=== PATIENT | female | born 1975 | race Caucasian/White ===

== ENCOUNTER 2016-10-12 03:46 | Emergency (ER) | payer OTHER ==
[2016-10-12] MEDS ORDERED: NS 2,000 ML IV ONE (03:52)
[2016-10-12] MEDS ORDERED: ONDANSETRON 4 MG/2 ML VIAL IVP ONE (03:52)
--- NOTE | 2016-10-12 03:57 | EDPHY ---
H & P HPI/ROS: HPI CHIEF COMPLAINT: Nausea, vomiting, diarrhea, syncope HISTORY OF PRESENT ILLNESS: This patient very pleasant 41-year-old female significant past medical history for [place] disease, she presents emergency room by EMS after she had 2 syncopal episodes. She has been sick with a diarrheal illness for the past 24 hours with persistent nausea vomiting and watery diarrhea no blood. No fever. She has also had some abdominal cramps. She states her daughter had the same thing and past the blood 2 her. She tells me she has been vomiting all night nonbloody nonbilious. Watery diarrhea no blood. Patient tells me she has had profuse watery diarrhea. She started vomiting this evening was lying down trying to get up and was unable to do so when she did she passed out she did try to get up again and passed out of as well she denies chest pain or shortness of breath. She does complain of lightheadedness. And abdominal cramping. She did receive Zofran by EMS and is feeling better prior to arrival. She declined pain medicine. Past Medical History: [place] Disease Past Surgical History: Appendectomy Social History: Denies daily use of drugs alcohol tobacco products Family History: Noncontributory ROS REVIEW OF SYSTEMS: A comprehensive 10 point review of systems is otherwise negative aside from elements mentioned in the history of present illness. Exam Constitutional appears nontoxic triage nursing summary reviewed, vital signs reviewed, awake/alert. Eyes normal conjunctivae and sclera, EOMI, PERRLA. HENT normal inspection, atraumatic, no dry mucous membranes , no epistaxis, neck supple/ no meningismus, no raccoon eyes. Respiratory clear to auscultation bilaterally, normal breath sounds, no respiratory distress, no wheezing. Cardiovascular rate normal, regular rhythm, no murmur, no edema, distal pulses normal. Gastrointestinal soft, mild tenderness diffusely, no rebound, no guarding, normal bowel sounds, no distension, no pulsatile mass. Genitourinary no CVA tenderness. Musculoskeletal no midline vertebral tenderness, full range of motion, no calf swelling, no tenderness of extremities, no meningismus, good pulses, neurovascularly intact. Skin pink, warm, & dry, no rash, skin atraumatic. Neurologic awake, alert and oriented x 3, AAOx3, moves all 4 extremities equally, motor intact, sensory intact, CN II-XII intact, normal cerebellar, normal vision, normal speech. Psychiatric normal mood/affect. Heme/Lymph/Immune no lymphadenopathy. Differential Diagnosis: Includes but is not limited to in a particular order, viral GI illness, bacterial gastroenteritis, diarrhea illness, electrolyte disturbance, dehydration, orthostatic syncope Medical Decision Making: Plan for this patient IV establishment, 2 L normal saline IV fluid bolus, IV Zofran for nausea, check abdominal blood work, orthostatics, EKG. Re-evaluation: EKG interpretation by me on record in [employer] [facility] system. Impression time of EKG 4:17 a.m., this is normal sinus rhythm rate of 76 nonspecific T-wave abnormalities noted in V3 flattening in V2, flattening in V1 biphasic in V4 V5. Otherwise no acute ischemia. 0656: This patient re-evaluation or abdomen is soft nontender no guarding or peritoneal signs she is feeling much better. Here in the emergency room she did receive 2 and 0.5 L of normal saline fluid, IV Reglan 10 mg, 25 mg IV Benadryl, 8 mg IV Zofran. She is feeling much better no vomiting. She did produce a stool sample we have set this. She knows to call in 24 hours to follow this up. I do feel comfortable allowing to go home she does understand we did not image her abdomen. She understands she develops worsening abdominal pain, fever, vomiting bloody stools she needs return emergency room. Will give her Zofran take-home pack. Most likely cause of syncope is orthostatic hypotension the setting of acute nausea vomiting and diarrheal illness similar to her child having it. She is afebrile here hemodynamically stable feels much better. She is agreeable for discharge. Return precautions given. Source: Patient, EMS Constitutional: Initial Vital Signs Temperature (C) 36.9 C 10/12/16 03:46 Heart Rate 80 10/12/16 03:46 Respiratory Rate 18 10/12/16 03:46 Blood Pressure 116/86 H 10/12/16 03:46 O2 Sat (%) 98 10/12/16 03:46 O2 Delivery Mode Room Air Allergies/Adverse Reactions: No Known Allergies Allergy (Unverified 10/12/16 03:59) Home Medications: Medication Instructions Recorded Miscellaneous Medical Supply [NO 12/22/12 HOME MEDS] Ondansetron HCl [Zofran] 4 mg PO Q4-6PRN PRN #10 tablet 10/12/16 Medical Decision Making - Data Points Laboratory Results: Laboratory Results 10/12/16 03:40 10/12/16 03:40 10/12/16 10/12/16 10/12/16 04:15 03:40 03:40 WBC RBC Hgb Hct MCV MCH MCHC RDW Plt Count MPV Neut % (Auto) Lymph % (Auto) [place] % (Auto) Eos % (Auto) Baso % (Auto) Nucleat RBC Rel Count Absolute Neuts (auto) Absolute Lymphs (auto) Absolute Monos (auto) Absolute Eos (auto) Absolute Basos (auto) Absolute Nucleated RBC Immature Gran % Immature Gran # Sodium 142 mEq/L mEq/L (134-144) Potassium 4.8 mEq/L mEq/L (3.5-5.2) Chloride 107 mEq/L mEq/L (97-110) Carbon Dioxide 18 mEq/l L mEq/l (22-31) Anion Gap 17 mEq/L H mEq/L (8-16) BUN 15 mg/dL mg/dL (7-23) Creatinine 0.9 mg/dL mg/dL (0.6-1.0) Estimated GFR > 60 Glucose 124 mg/dL H mg/dL (70-100) Calcium 10.7 mg/dL H mg/dL (8.5-10.4) Phosphorus 2.9 mg/dL mg/dL (2.5-4.5) Total Bilirubin 2.9 mg/dL H mg/dL (0.1-1.4) Conjugated Bilirubin 0.6 mg/dL H mg/dL (0.0-0.5) Unconjugated Bilirubin 2.3 mg/dL H mg/dL (0.0-1.1) AST 26 IU/L IU/L (14-46) ALT 31 IU/L IU/L (9-52) Alkaline Phosphatase 79 IU/L IU/L (38-126) Total Protein 9.1 g/dL H g/dL (6.3-8.2) Albumin 5.5 g/dL H g/dL (3.5-5.0) Lipase 80.0 IU/L IU/L (23-300) Beta HCG, Qual NEGATIVE Urine Color UMA Urine Appearance MODERATELY TURBID Urine pH 5.0 (5.0-7.5) Ur Specific [place] 1.031 H (1.002-1.030) Urine Protein 2+ H (NEGATIVE) Urine Ketones 2+ H (NEGATIVE) Urine Blood NEGATIVE (NEGATIVE) Urine Nitrate NEGATIVE (NEGATIVE) Urine Bilirubin NEGATIVE (NEGATIVE) Urine Urobilinogen NEGATIVE EU EU (0.2-1.0) Ur Leukocyte Esterase 2+ H (NEGATIVE) Urine RBC 15-25 /hpf H /hpf (0-3) Urine WBC 15-25 /hpf H /hpf (0-3) Ur Epithelial Cells 1+ /lpf /lpf (NONE-1+) Urine Mucus 4+ /lpf H /lpf (NONE-1+) Urine Glucose NEGATIVE (NEGATIVE) 10/12/16 03:40 WBC 15.41 10^3/uL H 10^3/uL (3.80-9.50) RBC 5.46 10^6/uL H 10^6/uL (4.18-5.33) Hgb 15.8 g/dL g/dL (12.6-16.3) Hct 46.6 % % (38.0-47.0) MCV 85.3 fL fL (81.5-99.8) MCH 28.9 pg pg (27.9-34.1) MCHC 33.9 g/dL g/dL (32.4-36.7) RDW 12.9 % % (11.5-15.2) Plt Count 184 10^3/uL 10^3/uL (150-400) MPV 11.1 fL fL (8.7-11.7) Neut % (Auto) 91.0 % H % (39.3-74.2) Lymph % (Auto) 4.8 % L % (15.0-45.0) [place] % (Auto) 3.1 % L % (4.5-13.0) Eos % (Auto) 0.3 % L % (0.6-7.6) Baso % (Auto) 0.3 % % (0.3-1.7) Nucleat RBC Rel Count 0.0 % % (0.0-0.2) Absolute Neuts (auto) 14.03 10^3/uL H 10^3/uL (1.70-6.50) Absolute Lymphs (auto) 0.74 10^3/uL L 10^3/uL (1.00-3.00) Absolute Monos (auto) 0.48 10^3/uL 10^3/uL (0.30-0.80) Absolute Eos (auto) 0.04 10^3/uL 10^3/uL (0.03-0.40) Absolute Basos (auto) 0.04 10^3/uL 10^3/uL (0.02-0.10) Absolute Nucleated RBC 0.00 10^3/uL 10^3/uL (0-0.01) Immature Gran % 0.5 % % (0.0-1.1) Immature Gran # 0.08 10^3/uL 10^3/uL (0.00-0.10) Sodium Potassium Chloride Carbon Dioxide Anion Gap BUN Creatinine Estimated GFR Glucose Calcium Phosphorus Total Bilirubin Conjugated Bilirubin Unconjugated Bilirubin AST ALT Alkaline Phosphatase Total Protein Albumin Lipase Beta HCG, Qual Urine Color Urine Appearance Urine pH Ur Specific [place] Urine Protein Urine Ketones Urine Blood Urine Nitrate Urine Bilirubin Urine Urobilinogen Ur Leukocyte Esterase Urine RBC Urine WBC Ur Epithelial Cells Urine Mucus Urine Glucose Medications Given: Discontinued Medications Diphenhydramine HCl (Benadryl Injection) 25 mg IVP EDNOW ONE Stop: 10/12/16 06:43 Last Admin: 10/12/16 06:49 Dose: 25 mg Sodium Chloride (Ns) 2,000 mls @ 0 mls/hr IV ONCE ONE PRN Reason: Wide Open Stop: 10/12/16 03:53 Last Admin: 10/12/16 04:09 Dose: 2,000 mls Metoclopramide HCl (Reglan Injection) 10 mg IVP EDNOW ONE Stop: 10/12/16 06:43 Last Admin: 10/12/16 06:49 Dose: 10 mg Morphine Sulfate (Morphine) 4 mg IVP EDNOW ONE Stop: 10/12/16 05:02 Last Admin: 10/12/16 05:00 Dose: 4 mg Ondansetron HCl (Zofran) 4 mg IVP EDNOW ONE Stop: 10/12/16 03:53 Last Admin: 10/12/16 04:09 Dose: 4 mg Departure - Departure Disposition: Home, Routine, Self-Care Clinical Impression: Abdominal pain Qualifiers: Abdominal location: generalized Qualified Code(s): R10.84 - Generalized abdominal pain Vomiting Qualifiers: Vomiting type: unspecified Vomiting Intractability: non-intractable Nausea presence: with nausea Qualified Code(s): R11.2 - Nausea with vomiting, unspecified Diarrhea Qualifiers: Diarrhea type: unspecified type Qualified Code(s): R19.7 - Diarrhea, unspecified Condition: Good Instructions: Acute Nausea and Vomiting (ED), Acute Diarrhea (ED) Additional Instructions: 1. return to the emergency room if develops any worsening symptoms includes abdominal pain, fever, vomiting bloody stools. 2. Have a very bland diet today no spicy fatty greasy foods. Advance her diet slowly. Referrals: Patient,NotPresent [Unknown] - As per Instructions Prescriptions: Ondansetron HCl [Zofran] 4 mg PO Q4-6PRN PRN #10 tablet PRN Reason: Nausea/Vomiting, Use 1st
[2016-10-12 03:59] VITALS: TEMP 98.4
[2016-10-12 04:00] LABS: % IMMATURE GRANULYOCYTES 0.5 % (0.0-1.1); ABSOLUTE IMMATURE GRANULOCYTES 0.08 10^3/uL (0.00-0.10); ADD DIFF? NO; ADD MORPH? NO; ADD SCAN? NO; ATYPICAL LYMPHOCYTE FLAG 0 (0-99); FRAGMENT RBC FLAG 0 (0-99); HEMATOCRIT 46.6 % (38.0-47.0); HEMOGLOBIN 15.8 g/dL (12.6-16.3); LEFT SHIFT FLG 0 (0-99); LIPEMIA HEMOLYSIS FLAG 90 (0-99); MEAN CELL HEMOGLOBIN 28.9 pg (27.9-34.1); MEAN CELL HEMOGLOBIN CONCENTR. 33.9 g/dL (32.4-36.7); MEAN CELL VOLUME 85.3 fL (81.5-99.8); MEAN PLATELET VOLUME 11.1 fL (8.7-11.7); PLATELET CLUMPS FLAG 40 (0-99); PLATELET COUNT 184 10^3/uL (150-400); RED BLOOD CELL COUNT 5.46 10^6/uL (4.18-5.33); RED CELL DISTRIBUTION WIDTH 12.9 % (11.5-15.2)
[2016-10-12 04:21] LABS: COLOR AMBER; LEUKOCYTE ESTERASE,URINE 2+ (NEGATIVE); NITRITE,URINE NEGATIVE (NEGATIVE)
[2016-10-12 04:33] LABS: MUCUS 4+ /lpf (NONE-1+); RBC,URINE 15-25 /hpf (0-3); WBC,URINE 15-25 /hpf (0-3)
[2016-10-12 04:34] LABS: ALANINE AMINOTRANSFERASE 31 IU/L (9-52); ALBUMIN 5.5 g/dL (3.5-5.0); ALKALINE PHOSPHATASE 79 IU/L (38-126); ANION GAP 17 mEq/L (8-16); ASPARTATE AMINOTRANSFERASE 26 IU/L (14-46); BILIRUBIN,TOTAL 2.9 mg/dL (0.1-1.4); BILIRUBIN-CONJUGATED 0.6 mg/dL (0.0-0.5); BILIRUBIN-UNCONJUGATED 2.3 mg/dL (0.0-1.1); CALCIUM 10.7 mg/dL (8.5-10.4); CARBON DIOXIDE 18 mEq/l (22-31); CHLORIDE 107 mEq/L (97-110); CREATININE 0.9 mg/dL (0.6-1.0); GLOMERULAR FILTRATION RATE > 60; GLUCOSE 124 mg/dL (70-100); POTASSIUM 4.8 mEq/L (3.5-5.2); SODIUM 142 mEq/L (134-144); TOTAL PROTEIN 9.1 g/dL (6.3-8.2)
--- NOTE | 2016-10-12 04:45 | CPEKG ---
Heart Rate: 76 RR Interval: 789 P-R Interval: 136 QRSD Interval: 82 QT Interval: 420 QTC Interval: 473 P [place]: 62 QRS [place]: 70 T Wave [place]: -45 EKG Severity - ABNORMAL ECG - EKG Impression: SINUS RHYTHM EKG Impression: NONSPECIFIC T ABNORMALITIES, ANTERIOR LEADS Electronically Signed By: Berry Rayo 12-Oct-2016 07:31:02
[2016-10-12] MEDS ORDERED: METOCLOPRAMIDE 10 MG/2 ML VIAL ONE (06:35)
[2016-10-12] MEDS ORDERED: METOCLOPRAMIDE 10 MG/2 ML VIAL IVP ONE (06:42)
[2016-10-12 07:00] VITALS: RESP 16; O2SAT 97
[2016-10-12] MEDS ORDERED: ONDANSETRON 4MG PREPACK#2 BTL TAKEHOME ONE (07:00)
[2016-10-12 07:32] VITALS: BP 110/74; PULSE 82
== END 2016-10-12 07:31 | disposition home or self-care (01) ==
LOC: EDUNIT#
DX: R19.7 Diarrhea, unspecified (principal); R11.2 Nausea with vomiting, unspecified; R10.84 Generalized abdominal pain
CPT/HCPCS: 96374; J1200; J2405; J2765

== ENCOUNTER → 2017-05-18 | Outpatient (CLI) | payer OTHER | LOC: FIMAGING 08:57 | DX: Z12.31 Encounter for screening mammogram for malignant neoplasm of breast (principal); R10.32 Left lower quadrant pain; N83.202 Unspecified ovarian cyst, left side; R93.8 Abnormal findings on diagnostic imaging of other specified body structures ==

== ENCOUNTER → 2017-06-04 | Outpatient (CLI) | payer OTHER | LOC: FIMAGING 12:46 | PROVIDERS: ATTEND Internal Medicine | DX: R93.8 Abnormal findings on diagnostic imaging of other specified body structures (principal) ==

== ENCOUNTER → 2018-03-11 | Outpatient (CLI) | payer OTHER ==
[~2018-03-11] MED LIST: IOPAMIDOL (ISOVUE-300) 100 ML BTL ONE
== END ==
LOC: FIMAGING 09:56
PROVIDERS: ATTEND Internal Medicine
DX: R10.32 Left lower quadrant pain (principal); G89.29 Other chronic pain
CPT/HCPCS: Q9967

== ENCOUNTER → 2018-05-22 | Outpatient (CLI) | payer OTHER | LOC: FIMAGING 11:03 | PROVIDERS: ATTEND Midwife | DX: Z12.31 Encounter for screening mammogram for malignant neoplasm of breast (principal) ==

== ENCOUNTER → 2018-07-14 | Outpatient (CLI) | payer OTHER | LOC: BMCIMAGING 12:16 | PROVIDERS: ATTEND Family Medicine | DX: J40 Bronchitis, not specified as acute or chronic (principal) ==